=== PATIENT | male | born 1985 | race Hispanic/Latino ===

== ENCOUNTER 2016-11-08 17:42 | Emergency (ER) | payer SELFPAY ==
[2016-11-08] MEDS ORDERED: NORCO 5/325 PO ONE (18:14)
[2016-11-08] MEDS ORDERED: BOOSTRIX IM ONE (18:15)
[2016-11-08] MEDS ORDERED: XYLOCAINE 1% 20 mL INFILTRATI ONE (18:26)
--- NOTE | 2016-11-08 19:19 | Emergency Department Report ---
HPI - General Chief Complaint: Multiple Trauma Time Seen by Provider: 11/08/16 18:02 - HPI HPI: 31-year-old male comes in for evaluation of left thumb. 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 Patient reports no other past medical history he denies she is up-to -date on his tetanus. He has been applying pressure to the wound. ED Past Medical Hx - Past Medical History Previous Medical History?: No - Surgical History Past Surgical History?: No - Social History Smoking Status: Never Smoker Substance Use Type: None - Medications Home Medications: Home Medications Medication Instructions Recorded Confirmed Last Taken Type Ibuprofen [Motrin] 600 mg PO Q8H PRN #30 tablet 11/08/16 Unknown Rx Sulfamethoxazole/Trimethoprim 1 each PO BID #20 tablet 11/08/16 Unknown Rx [Bactrim DS TAB] ED Review of Systems ROS: Stated complaint: LT THUMB WOUND Other details as noted in HPI Physical Exam - Physical Exam Vital Signs: Vital Signs 11/08/16 17:48 Temperature 98.7 F Pulse Rate 80 Respiratory 18 Rate Blood Pressure 147/96 O2 Sat by Pulse 100 Oximetry Physical Exam: GENERAL: Alert and oriented x3, no apparent distress, Normal Gait, atraumatic. HEAD: Head is normocephalic and a-traumatic. EXTREMITIES/MUSCULOSKELETAL: No cyanosis, clubbing, rash, lesions or edema. Full ROM bilaterally. UE/LE Pulses 2+ bilaterally. LE and UE 5+ strength bilaterally, right thumb laceration dorsal side proximal to the distal lateral aspect 5 cm laceration Actively bleeding. Range of motion is intact. NEUROLOGIC: No focal Deficit, Cranial nerves II through XII are grossly intact. No loss of sensation, No facial droop, Negative rhomberg. PSYCHIATRIC: Mood is congruent with affect, denies suicidal or homicidal ideations. SKIN: Warm and dry, No lesions, No ulceration or induration present ED Course Vital Signs 11/08/16 17:48 Temperature 98.7 F Pulse Rate 80 Respiratory 18 Rate Blood Pressure 147/96 O2 Sat by Pulse 100 Oximetry - Laceration /Wound Repair Left Proximal Dorsal Finger Wound's Depth, Shape: into muscle Wound Explored: clean Irrigated w/ Saline (ccs): 60 Betadine Prep?: Yes Anesthesia: 1% Lidocaine Volume Anesthetic (ccs): 10 Wound Repaired With: sutures Suture Size/Type: 5:0, proline Number of Sutures: 7 Layer Closure?: No ED Medical Decision Making - Radiology Data interpreted by me: No fracture or dislocated appreciated - Medical Decision Making Patient Since been evaluated about this provider as well as Dr. Pritchett. Patient was ordered pain medication. Suture kit. Will discharge patient on Keflex and for him to return in 10-14 days to have sutures removed Critical care attestation.: If time is entered above; I have spent that time in minutes in the direct care of this critically ill patient, excluding procedure time. ED Disposition Clinical Impression: Laceration of finger, left, with tendon Qualifiers: Encounter type: initial encounter Qualified Code(s): S61.412A - Laceration without foreign body of left hand, initial encounter Disposition: DISCHARGED TO HOME OR SELFCARE Is pt being admited?: No Does the pt Need Aspirin: No Condition: Stable Instructions: Suture Care (ED), Laceration (ED), Finger Laceration (ED) Additional Instructions: Please take all antibiotics as prescribed. You can take the Motrin when necessary for pain. Very importantly to return in 10-14 days for suture removal. Return sooner if he develops a fever swelling of the finger purulent discharge unable to bend the finger. Prescriptions: Ibuprofen [Motrin] 600 mg PO Q8H PRN #30 tablet PRN Reason: Pain Sulfamethoxazole/Trimethoprim [Bactrim DS TAB] 1 each PO BID #20 tablet Referrals: RAKEL SHANKS MD [Staff Physician] - 3-5 Days Forms: Accompanied Note, Work/School Release Form(ED)
[2016-11-08 19:48] VITALS: BP 122/78
--- NOTE | 2016-11-08 20:07 | XRay Report ---
FINAL REPORT PROCEDURE: Left thumb series TECHNIQUE: LEFT thumb finger radiographs, including AP, lateral, and oblique views. HISTORY: left thumb laceration due to chainsaw COMPARISON: No prior studies are available for comparison. FINDINGS: Fracture (s) and/or Dislocation(s): No acute fracture is seen. There is mild deformity of the distal end of the middle phalanx of the little finger suggesting an old healed fracture.. Alignment: Normal. Joint space(s): Normal . Soft tissues: Normal . Bone mineralization: Normal . Foreign bodies: None . IMPRESSION: Mild deformity distal end middle phalanx little finger suggesting an old healed fracture. No acute abnormality is seen. No acute fracture or foreign bodies are identified.
== END 2016-11-08 19:48 | disposition home or self-care (01) ==
LOC: ED 17:42
DX: S61.412A Laceration without foreign body of left hand, initial encounter (principal); W31.89XA Contact with other specified machinery, initial encounter; Y93.9 Activity, unspecified; Y92.9 Unspecified place or not applicable; Y99.9 Unspecified external cause status
CPT/HCPCS: 90471; 90715; 99283